=== PATIENT | female | born 1995 | race Caucasian/White ===

== ENCOUNTER 2024-03-07 22:08 | Emergency (ER) | payer SELFPAY ==
[~2024-03-07] VITALS: Ht 162.6 cm; Wt 55.0 kg
[2024-03-07 22:16] VITALS: O2SAT 99
[2024-03-07] MEDS: ACTIVATED CHARCOAL 50 G/240 ML TUBE NG ONE (22:45)
[2024-03-07 23:56] LABS: CHLORIDE 104 mEq/L (98-107); POTASSIUM 3.6 mEq/L (3.5-5.1); SODIUM 137 mEq/L (136-145)
[2024-03-07 23:57] LABS: CALCIUM 10.3 mg/dL (8.7-10.4); CARBON DIOXIDE 23 mEq/L (21-32)
[2024-03-08 00:01] LABS: BASOPHILS % 0.1 % (0.0-2.0); HEMATOCRIT. 43.2 % (36.0-48.0); HEMOGLOBIN. 14.7 g/dL (12.0-16.0); LYMPHOCYTES % 8.1 % (20.0-50.0); MEAN CORPUSCULAR HEMOGLOBIN 31.4 pg (28.0-32.0); MEAN CORPUSCULAR HGB CONC 34.1 g/dL (31.0-37.0); MEAN PLATELET VOLUME 7.8 fl (7.4-10.4); MONOCYTES % 2.9 % (2.0-8.0); NEUTROPHILS % 88.9 % (40.0-76.0); PLATELET 247 x1000/uL (130-400); WHITE BLOOD COUNT 11.9 x1000/uL (4.5-11.0)
[2024-03-08 00:02] LABS: GLUCOSE 105 mg/dL (70-105); UREA NITROGEN BLOOD 7 mg/dL (9-23)
[2024-03-08 00:04] LABS: ACETAMINOPHEN 27 ug/mL (10-30)
[2024-03-08 00:08] LABS: ETHANOL BLOOD < 10 mg/dL (<10)
[2024-03-08] MEDS: ACTIVATED CHARCOAL 50 G/240 ML TUBE NG NR (00:57)
[2024-03-08 02:11] LABS: *AMPHETAMINES SCREEN URINE NEGATIVE (NEGATIVE); *BARBITURATES SCREEN URINE NEGATIVE (NEGATIVE); *BENZODIAZEPINES SCREEN URINE NEGATIVE (NEGATIVE); *COCAINE SCREEN URINE NEGATIVE (NEGATIVE); CANNABINOID URINE SCREEN NEGATIVE (NEGATIVE); ECSTASY MDMA SCREEN URINE NEGATIVE (NEGATIVE); METHADONE URINE SCREEN NEGATIVE (NEGATIVE); OPIATES URINE SCREEN NEGATIVE (NEGATIVE); PHENCYCLIDINE URINE SCREEN NEGATIVE (NEGATIVE)
[2024-03-08 09:25] LABS: CARBON DIOXIDE 23 mEq/L (21-32); CHLORIDE 109 mEq/L (98-107); POTASSIUM 3.6 mEq/L (3.5-5.1); SODIUM 140 mEq/L (136-145)
[2024-03-08 09:26] LABS: CALCIUM 9.7 mg/dL (8.7-10.4)
[2024-03-08 09:31] LABS: GLUCOSE 106 mg/dL (70-105); UREA NITROGEN BLOOD 5 mg/dL (9-23)
[2024-03-08 09:32] LABS: ALANINE AMINOTRANSFERASE 30 IU/L (10-49); ASPARTATE AMINOTRANSFERASE 20 IU/L (<34)
[2024-03-08 09:33] LABS: ALBUMIN 4.5 g/dL (3.2-4.8); BILIRUBIN TOTAL 1.2 mg/dL (0.1-1.0); PROTEIN TOTAL 7.4 g/dL (6.0-8.3)
[2024-03-08 09:52] LABS: CREATININE 1.4 mg/dL (0.6-1.0)
[2024-03-09 21:31] LABS: HCG SCREEN NEGATIVE
[2024-03-09 23:02] LABS: CLARITY URINE TURBID (CLEAR); COLOR URINE DARK YELLOW (YELLOW); GLUCOSE URINE NEGATIVE (NEGATIVE); KETONES URINE NEGATIVE (NEGATIVE); LEUKOCYTE ESTERASE URINE 1+ (NEGATIVE); NITRITE URINE NEGATIVE (NEGATIVE); OCCULT BLOOD URINE NEGATIVE (NEGATIVE); PH URINE 7.5 (4.5-8.0); PROTEIN URINE NEGATIVE (NEGATIVE); SPECIFIC GRAVITY URINE 1.018 (1.005-1.030)
[2024-03-09 23:18] LABS: BACTERIA URINE 3+; RBC URINE 0-2 /hpf (0-2); SQUAMOUS EPITHELIAL CELL URINE 1+ /lpf (RARE/1+)
[2024-03-09 23:19] LABS: AMORPHOUS SEDIMENT URINE 2+ /lpf
[2024-03-10] MEDS: LIDOCAINE HCL 1% 20ML VIAL INFIL ONE (00:20)
[2024-03-10] MEDS: CEFTRIAXONE SODIUM 500MG VIAL IM ONE (00:20)
[2024-03-10 06:47] VITALS: BP 117/73; PULSE 100; RESP 18; TEMP 36.83628; O2SAT 100
[2024-03-12 19:08] LABS: AMPHETAMINE SCREEN Negative ng/mL (Cutoff:50); BARBITURATE SCREEN Negative ug/mL (Cutoff:0.1); BENZODIAZEPINE SCREEN Negative ng/mL (Cutoff:20); CANNABINOID SCREEN Negative ng/mL (Cutoff:5); OPIATES SCREEN Negative ng/mL (Cutoff:5); OXYCODONE SCREEN Negative ng/mL (Cutoff:5); PHENCYCLIDINE SCREEN Negative ng/mL (Cutoff:8)
== END 2024-03-10 12:50 | disposition home or self-care (01) ==
LOC: ER 22:08
DX: T65.92XA Toxic effect of unspecified substance, intentional self-harm, initial encounter (principal); R45.851 Suicidal ideations; F32.A Depression, unspecified; Z20.822 Contact with and (suspected) exposure to COVID-19; X58.XXXA Exposure to other specified factors, initial encounter
CPT/HCPCS: 80053; 80305; 80048; 81003; 80307; 80329; 80320; 84703; 85025; 36415; 99285; 87426; Z7610; J0696; J3490; G0480